=== PATIENT | male | born 1990 | race Caucasian/White ===

== ENCOUNTER 2022-07-29 03:39 | Outpatient (CLI) | payer MEDICAID, SELFPAY ==
[2022-07-29] MEDS: Methacholine 100 MG VIAL IH (11:37)
[2022-07-29] MEDS: Albuterol HFA 18 GM 200 PUFF INH IH (11:38)
[2022-07-29] MEDS: Inhaler, Assist Device 1 EACH MC (11:38)
--- NOTE | 2022-08-02 16:07 | W.PFT ---
Date of service: 07/29/22 Time of Service: 10:06 Pulmonary Function Test Result Requesting Provider Anusha Indications: SEE Interpretation Spirometry: There is no airflow limitation. There was a 26% drop in FEV1 with administration 0.5mg/mL methacholine Lung Volumes: Normal lung volumes Diffusion Capacity: Normal diffusion Airway Pressure: Normal airways resistance Impression Normal pulmonary function testing with a strongly positive methacholine challenge test. Clinical Correlation therefore is recommended.
== END 2022-07-29 03:40 | disposition home or self-care (01) ==
LOC: RT 03:39
PROVIDERS: PCP Family Medicine; Visit Provider Student in an Organized Health Care Education/Training Program
DX: R06.09 Other forms of dyspnea (principal); Z87.891 Personal history of nicotine dependence
CPT/HCPCS: 94060; 94070; 94726; 94729; 94010; J7674

== ENCOUNTER 2023-01-30 04:01 | Outpatient (CLI) | payer MEDICAID, SELFPAY ==
--- NOTE | 2023-01-30 08:01 | DI.MRI_ITS ---
Exam(s) MR CERVICAL SPINE WO EXAM: MR CERVICAL SPINE WO CLINICAL HISTORY: rt neck pain, b/l arm pain/paresthesias, abnml EMG,m54.2,m79.601,r20.2 TECHNIQUE: Multiplanar multisequence MRI of the cervical spine was performed without intravenous con trast. COMPARISON: No exams were available for comparison FINDINGS: BONES: Vertebral body heights are maintained. Intervertebral disc spaces are normal. Alignment is nor mal. Bone marrow signal intensity is within normal limits. CERVICAL CORD: Craniovertebral junction is unremarkable. The cervical cord is normal size and signal intensity. SOFT TISSUES: Unremarkable. C2-3: No disc herniation or bulge is identified. No significant central spinal canal or neural forami nal stenosis. C3-4: No disc herniation or bulge is identified. No significant central spinal canal or neural forami nal stenosis C4-5: No disc herniation or bulge is identified. No significant central spinal canal or neural forami nal stenosis C5-6: No disc herniation or bulge is identified. No significant central spinal canal or neural forami nal stenosis C6-7: No disc herniation or bulge is identified. No significant central spinal canal or neural forami nal stenosis C7-T1: No disc herniation or bulge is identified. No significant central spinal canal or neural ruddy inal stenosis IMPRESSION: Unremarkable MRI of the cervical spine. DATA REPOSITORY:
== END 2023-01-30 04:21 ==
LOC: DI 04:01
PROVIDERS: PCP Family Medicine; Visit Provider Nurse Practitioner Adult Health
DX: M54.2 Cervicalgia (principal); R20.2 Paresthesia of skin; M79.601 Pain in right arm
CPT/HCPCS: 72141

== ENCOUNTER 2023-03-25 01:08 | Outpatient (CLI) | payer MEDICAID, SELFPAY ==
--- NOTE | 2023-03-25 07:30 | DI.MRI_ITS ---
Exam(s) MR BRAIN WO EXAM: MR BRAIN WO CLINICAL HISTORY: ?MS, paresthesia,r20.2 TECHNIQUE: Multiplanar multisequence MRI of the brain was performed. COMPARISON: No exams were available for comparison FINDINGS: VENTRICLES AND EXTRA AXIAL SPACES: Normal in size and morphology for the patient's age. MIDLINE SHIFT: None. CEREBRAL PARENCHYMA: No focus of restricted diffusion to suggest acute infarct. No space-occupying le mark identified. HEMORRHAGE: None. BRAINSTEM/CEREBELLUM: Normal. CALVARIUM: Normal. VISUALIZED PARANASAL SINUSES/MASTOIDS:There is mild mucosal thickening in the right sphenoid sinus. The remaining visualized paranasal sinuses are clear. No fluid levels are seen. The mastoid air stacey ls are clear. [place] OF [place]: Normal flow void. PITUITARY GLAND: Unremarkable. OTHER FINDINGS: None. IMPRESSION: 1. Unremarkable MRI of the brain. 2. Mild sphenoid sinus disease. DATA REPOSITORY:
== END 2023-03-25 01:28 ==
LOC: DI 01:09
PROVIDERS: PCP Family Medicine; Visit Provider Psychiatry & Neurology Neurology
DX: R20.2 Paresthesia of skin (principal)
CPT/HCPCS: 70551